=== PATIENT | female | born 1985 ===

== ENCOUNTER 2024-04-22 09:00 | Inpatient (IN) | payer OTHER ==
[~2024-04-22] VITALS: Ht 243.8 cm; Wt 52.2 kg
[2024-04-25] MEDS ORDERED: LEVOTHYROXINE25 MC2 PO (08:36)
[2024-04-29] MEDS ORDERED: METRONIDAZOLE/SODIUM CHLORIDE 500 MG/100 ML PIGGYBACK IV ONE (13:15)
[2024-04-29] MEDS ORDERED: CEFTRIAXONE SODIUM 2,000 MG VIAL IV SCH (13:15)
[2024-04-29] MEDS ORDERED: MORPHINE SULFATE 4 MG/ML CARTRIDGE IV PRN (14:15)
[2024-04-29] MEDS ORDERED: OxyCODONE HCL 5 MG TABLET (ROXICODONE) PO PRN (14:15)
[2024-04-29] MEDS ORDERED: ONDANSETRON HCL 2 MG/ML VIAL IV PRN (14:15)
[2024-04-29] MEDS ORDERED: RINGERS SOLUTION,LACTATED 1,000 ML IV SCH (14:15)
[2024-04-29] MEDS ORDERED: MORPHINE SULFATE 4 MG/ML VIAL IV ONE ×2 (14:55→15:25)
[2024-04-29] MEDS ORDERED: CELECOXIB 200 MG CAPSULE PO SCH (17:00)
[2024-04-29] MEDS ORDERED: SIMETHICONE 125 MG CAPSULE PO SCH (17:00)
[2024-04-29] MEDS ORDERED: POLYETHYLENE GLYCOL 3350 17 GM BLIST.PACK PO SCH (17:00)
[2024-04-29] MEDS ORDERED: HYOSCYAMINE SULFATE 0.125 MG TAB.SUBL SL SCH (17:00)
[2024-04-29] MEDS ORDERED: GABAPENTIN 300 MG CAPSULE PO SCH (17:00)
[2024-04-29] MEDS ORDERED: METOCLOPRAMIDE HCL 5 MG/ML VIAL IV SCH (17:00)
[2024-04-29] MEDS ORDERED: MEPERIDINE HCL 25 MG/ML AMPUL IV ONE (17:20)
[2024-04-29 17:59] LABS: HEMATOCRIT 36.2 % (36.0-45.00); MEAN CELL VOLUME 90.2 fL (80.00-100.00); MEAN CORPUSCULAR HEMOGLOBIN 29.9 pg (27.00-32.0); MEAN CORPUSCULAR HGB CONC 33.1 g/dl (32.0-36.0); PLATELET COUNT 316 K/uL (150-450); RED BLOOD COUNT 4.02 M/uL (4.00-6.00); RED CELL DISTRIBUTION WIDTH 13.7 % (11.5-14.5)
[2024-04-29 18:08] VITALS: BP 119/78; O2SAT 98
[2024-04-29] MEDS ORDERED: ACETAMINOPHEN 500 MG GEL..CAP PO SCH (20:00)
[2024-04-29] MEDS ORDERED: FAMOTIDINE/PF 20 MG/2 ML VIAL IV PUSH SCH (21:00)
[2024-04-30 00:10] VITALS: BP 119/77; O2SAT 98
[2024-04-30] MEDS ORDERED: LEVOTHYROXINE SODIUM 25 MCG TABLET PO SCH (06:00)
[2024-04-30 07:36] LABS: HEMATOCRIT 36.9 % (36.0-45.00); MEAN CELL VOLUME 90.1 fL (80.00-100.00); MEAN CORPUSCULAR HGB CONC 33.9 g/dl (32.0-36.0); PLATELET COUNT 271 K/uL (150-450); RED CELL DISTRIBUTION WIDTH 13.7 % (11.5-14.5)
[2024-04-30 07:38] LABS: HEMOGLOBIN 12.5 g/dL (12.0-15.00); MEAN CORPUSCULAR HEMOGLOBIN 30.4 pg (27.00-32.0)
[2024-04-30 08:00] VITALS: BP 123/85; O2SAT 99
[2024-04-30 08:39] LABS: ALBUMIN 2.9 gm/dL (3.4-5.0); CALCIUM 8.6 mg/dL (8.5-10.1); CREATININE SERUM 0.6 mg/dL (0.55-1.02); GFR 112.49; MAGNESIUM 1.6 mg/dL (1.8-2.4); PHOSPHOROUS 2.4 mg/dL (2.5-4.9); POTASSIUM 4.12 mEq/L (3.5-5.1)
[2024-04-30] MEDS ORDERED: LACTOBACILLUS ACIDOPHILUS 1 CAP CAP PO SCH (09:00)
[2024-04-30] MEDS ORDERED: LACTULOSE 20 G/30 ML BLIST.PACK PO SCH (09:00)
[2024-04-30] MEDS ORDERED: MAGNESIUM SULFATE IN WATER 50 ML IV NR (09:30)
[2024-04-30] MEDS ORDERED: POTASSIUM PHOS,M-BASIC-D-BASIC 3 MM/ML VIAL IV NR (09:30)
[2024-04-30 17:00] VITALS: BP 111/75; O2SAT 98
[2024-04-30] MEDS ORDERED: ENOXAPARIN SODIUM 40 MG/0.4 ML SYRINGE SUBCUTANEO SCH (17:00)
[2024-05-01 00:19] VITALS: BP 112/79; O2SAT 100
[2024-05-01 07:15] LABS: HEMATOCRIT 35.7 % (36.0-45.00); HEMOGLOBIN 12.1 g/dL (12.0-15.00); MEAN CORPUSCULAR HEMOGLOBIN 30.5 pg (27.00-32.0); MEAN CORPUSCULAR HGB CONC 33.9 g/dl (32.0-36.0); PLATELET COUNT 250 K/uL (150-450); RED BLOOD COUNT 3.97 M/uL (4.00-6.00); RED CELL DISTRIBUTION WIDTH 13.7 % (11.5-14.5)
[2024-05-01 07:54] LABS: CALCIUM 8.2 mg/dL (8.5-10.1); CREATININE SERUM 0.46 mg/dL (0.55-1.02); GFR 152.85; POTASSIUM 3.64 mEq/L (3.5-5.1)
[2024-05-01 07:58] LABS: PHOSPHOROUS 1.7 mg/dL (2.5-4.9)
[2024-05-01 09:00] VITALS: BP 118/82; O2SAT 98
[2024-05-01] MEDS ORDERED: ENOXAPARIN SODIUM 40 MG/0.4 ML SYRINGE SUBCUTANEO SCH (09:00)
[2024-05-01] MEDS ORDERED: POTASSIUM PHOS,M-BASIC-D-BASIC 15 MM in 0.9 % SODIUM CHLORIDE 250 ML IV NR (09:00)
== END 2024-05-01 12:00 | disposition home or self-care (01) | DRG 334 ==
LOC: O/R 04-29 06:49 → SURH 04-29 08:30 → SURG 04-29 15:49 → SURH 04-29 23:45 → SURG 05-01 12:00
PROVIDERS: Internal Medicine Geriatric Medicine; ADMIT Colon & Rectal Surgery; ATTEND Colon & Rectal Surgery
PROC: 07BC4ZX Excision of Pelvis Lymphatic, Percutaneous Endoscopic Approach, Diagnostic (ICD-10-PCS; 2024-04-29)
PROC: 0DBP4ZZ Excision of Rectum, Percutaneous Endoscopic Approach (ICD-10-PCS; principal; 2024-04-29 23:45)
DX: C20 Malignant neoplasm of rectum (principal); E03.9 Hypothyroidism, unspecified

== ENCOUNTER 2024-06-11 05:30 | Day surgery (SDC) | payer OTHER ==
[2024-06-06 12:30] VITALS: BP 113/80
[~2024-06-11] VITALS: Ht 139.7 cm; Wt 49.0 kg
[~2024-06-11 05:30] MED LIST: LEVOTHYROXINE25 MC2 PO
[2024-06-11] MEDS ORDERED: LIDOCAINE HCL 1%/EPINEPHRINE 20ML VIAL IJ ONE (07:22)
[2024-06-11] MEDS ORDERED: HEPARIN SODIUM,PORCINE/PF 100 UNIT/ML SYRINGE IV ONE (07:22)
[2024-06-11] MEDS ORDERED: BUPIVACAINE HCL/MPF 0.5% 30ML VIAL ONE (07:22)
[2024-06-11] MEDS ORDERED: CEFAZOLIN SODIUM 1,000 MG VIAL ONE (07:30)
== END 2024-06-11 10:30 | disposition home or self-care (01) ==
LOC: CIR.AMB 05:30
PROVIDERS: ATTEND Colon & Rectal Surgery
DX: C20 Malignant neoplasm of rectum (principal); E03.8 Other specified hypothyroidism
CPT/HCPCS: 36561; C1751